=== PATIENT | female | born 1990 | race Caucasian/White ===

== ENCOUNTER 2016-09-10 23:50 | Emergency (ER) | payer SELFPAY ==
[~2016-09-10] VITALS: Ht 162.6 cm; Wt 122.5 kg
[2016-09-11 00:13] VITALS: BP 113/81
--- NOTE | 2016-09-11 01:03 | NUR ---
PT TAKEN TO OVERFLOW
--- NOTE | 2016-09-11 02:01 | NUR ---
Dr. Suh evaluating patient
--- NOTE | 2016-09-11 03:04 | NUR ---
PT TAKEN TO CT/XRAY
--- NOTE | 2016-09-11 03:32 | NUR ---
PT RETURN FROM CT
[2016-09-11 03:50] VITALS: BP 108/72
--- NOTE | 2016-09-11 03:50 | NUR ---
Patient discharged with v/s stable PER DR CEDENO. Written and verbal after care instructions given and explained PER DR CEDENO. Patient alert, oriented and verbalized understanding of instructions. Ambulatory with steady gait. All questions addressed prior to discharge. ID band removed. Patient advised to follow up with PMD. Rx of NAPROXEN AND MACROBID given PER DR CEDENO. Patient educated on indication of medication including possible reaction and side effects. Opportunity to ask questions provided and answered. D/C NOTE ONLY.
== END 2016-09-11 03:50 | disposition home or self-care (01) ==
LOC: MED 23:50
DX: S09.90XA Unspecified injury of head, initial encounter (principal); M25.512 Pain in left shoulder; M25.562 Pain in left knee; N39.0 Urinary tract infection, site not specified; W01.0XXA Fall on same level from slipping, tripping and stumbling without subsequent striking against object, initial encounter; Y93.89 Activity, other specified; Y92.89 Other specified places as the place of occurrence of the external cause; Y99.8 Other external cause status